=== PATIENT | female | born 1940 | race Caucasian/White ===

== ENCOUNTER 2017-01-29 12:11 | Emergency (ER) | payer MEDICARE, OTHER ==
[~2017-01-29] VITALS: Ht 157.5 cm; Wt 82.1 kg
[~2017-01-29 12:11] MED LIST: ALBU6.7H IH; CALC600T23 PO; ERGO2000 PO; ESOM40CA25 PO; FLUT1DIS3 IH; FOLI1TAB16 PO; GARL1CAP3 PO; LIDO700A4 TP; MELO15TA6 PO; MULT-496 PO; OMEG500C PO; SELE200T10 PO; TUMERIC; VALS80TA3 PO; [UNRECOGNIZED DRUG - CODE] MC
[2017-01-29 12:22] VITALS: BP 136/64
[2017-01-29] MEDS ORDERED: ONDANSETRON PF 4 MG/2 ML VIAL. IV ONE (12:45)
[2017-01-29 13:19] LABS: BASO # 0.1 x10^3/uL (0.0-0.2); BASO % 1 % (0-3); EOS # 0.2 x10^3/uL (0.0-0.7); EOS % 3 % (0-3); HEMATOCRIT 41.4 % (36.0-47.0); HEMOGLOBIN 13.9 g/dL (12.0-15.5); LYMPH # 2.5 x10^3/uL (1.0-4.8); LYMPH % 29 % (24-48); MEAN CORPUSCULAR HEMOGLOBIN 31 pg (25-35); MEAN CORPUSCULAR HGB CONC 34 g/dL (31-37); MEAN CORPUSCULAR VOLUME 91 fL (79-100); MONO # 0.9 x10^3/uL (0.0-1.1); MONO % 11 % (0-9); NEUT # 4.8 x10^3uL (1.8-7.7); NEUT % 56 % (31-73); PLATELET COUNT 221 x10^3/uL (140-400); RED BLOOD COUNT 4.55 x10^6/uL (3.50-5.40); RED CELL DISTRIBUTION WIDTH 14.1 % (11.5-14.5); WHITE BLOOD COUNT 8.5 x10^3/uL (4.0-11.0)
[2017-01-29 13:36] LABS: ALBUMIN 3.7 g/dL (3.4-5.0); CREATININE 1.3 mg/dL (0.6-1.0); GFR 39.9; TOTAL BILIRUBIN 0.4 mg/dL (0.2-1.0); TOTAL PROTEIN 7.4 g/dL (6.4-8.2)
[2017-01-29] MEDS ORDERED: IOHEXOL 300 MG/ML 75 ML VIAL. IV ONE (13:45)
--- NOTE | 2017-01-29 14:25 | RAD ---
CT abdomen/pelvis Indication: Left-sided abdominal pain Technique: CT abdomen and pelvis with 100 mL of Omnipaque 300 with multiplanar reformats Comparison: Previous CT abdomen/pelvis without contrast from 07/14/2016 Findings: Heart is normal in size. No pericardial or pleural effusion. Clear lung bases. 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 Otherwise, liver within normal limits. Spleen within normal limits. Status post cholecystectomy. Multiple small low attenuating lesions seen in the pancreas , nonspecific may represent side branch IPMN. Small area of focal fat infiltration is seen in the uncinate process. No suspicious bony lesion. Lower lumbar spine degenerative disc disease. No intrahepatic or extrahepatic biliary duct dilation. Left adrenal gland show stable nodularity. Right adrenal gland within normal limits. Partial nephrectomy changes seen in the left kidney. No suspicious solid renal lesions. No hydronephrosis or perinephric fluid collection. Postsurgical changes seen in the gastrosplenic recess. No retroperitoneal or pelvic adenopathy. No bowel obstruction. Sigmoid and descending colon diverticulosis. Redemonstrated is a left flank hernia likely from prior nephrectomy. Appendix is visualized and is within normal limits. Uterus is present. Bladder is within normal limits. No solid adnexal lesion. No free pelvic fluid. Scattered atherosclerotic disease of aorta noted. Focal dilation of the infrarenal aorta measuring 2.2 cm. Impression: 1. Stable partial left nephrectomy changes without evidence of focal lesion. 2. Left flank hernia likely from prior nephrectomy. 3. Scattered low attenuating lesions within the pancreas, nonspecific may represent side branch IPMN. Attention on follow-up. 4. Mild focal dilation of the infrarenal aorta measuring 2.2 cm. 5. Sigmoid and descending colon diverticulosis without diverticulitis. PQRS Compliance Statement: One or more of the following individualized dose reduction techniques were utilized for this examination: 1. Automated exposure control 2. Adjustment of the mA and/or kV according to patient size 3. Use of iterative reconstruction technique
[2017-01-29 15:18] LABS: BACTERIA,URINE 0 /HPF (0-FEW); BILIRUBIN,URINE NEG (NEG); CLARITY,URINE CLEAR; COLOR,URINE STRAW; GLUCOSE,URINE NEG (NEG); NITRITE,URINE NEG (NEG); RBC,URINE 0 /HPF (0-2); SQUAMOUS EPITHELIAL CELL,UR OCC /LPF; UROBILINOGEN,URINE 0.2 mg/dL (0.2 mg/dL)
--- NOTE | 2017-01-29 16:16 | PHYS DOC ---
Past History Past Medical History: Cancer, Hypertension, Other Past Surgical History: Cancer Surgery, Other Alcohol Use: Occasionally Drug Use: None Adult General Chief Complaint Chief Complaint: ABDOMINAL PAIN HPI HPI 76-year-old female with a prior history of kidney cancer treated surgically with a chronic hernia in her abdomen now presents to the emergency department because of a feeling of fullness where a mass and fullness has been for 6 months by the patient's description. No active vomiting or diarrhea. No fevers chills sweats or shaking chills. Pain is not worse with movement. This is been previously evaluated and deemed to be a nonsurgical and nonemergent process. Review of Systems Review of Systems Constitutional: Denies fever or chills [] Eyes: Denies change in visual acuity, redness, or eye pain [] HENT: Denies nasal congestion or sore throat [] Respiratory: Denies cough or shortness of breath [] Cardiovascular: No additional information not addressed in HPI [] GI: Denies abdominal pain, nausea, vomiting, bloody stools or diarrhea [] : Denies dysuria or hematuria [] Musculoskeletal: Denies back pain or joint pain [] Integument: Denies rash or skin lesions [] Neurologic: Denies headache, focal weakness or sensory changes [] Endocrine: Denies polyuria or polydipsia [] Current Medications Current Medications Current Medications Medications (Trade) Dose Ordered Sig/Kaylyn Start Time Stop Time Status Last Admin Dose Admin Iohexol (Omnipaque 300 Mg/ml) 75 ml 1X ONCE 01/29/17 13:45 01/29/17 13:46 DC 01/29/17 13:53 75 ML Ondansetron HCl (Zofran) 4 mg 1X ONCE 01/29/17 12:45 01/29/17 12:46 DC 01/29/17 13:14 4 MG Allergies Allergies Allergies Coded Allergies Type Severity Reaction Last Updated Verified No Known Drug Allergies 07/14/14 No Physical Exam Physical Exam Well appearing patient no acute distress mild fullness left abdomen no tenderness or guarding. Normal bowel sounds no megaly appreciated. No skin changes. Vital signs unremarkable Constitutional: Well developed, well nourished, no acute distress, non-toxic appearance. [] HENT: Normocephalic, atraumatic, bilateral external ears normal, oropharynx moist, no oral exudates, nose normal. [] Eyes: PERRLA, EOMI, conjunctiva normal, no discharge. [] Neck: Normal range of motion, no tenderness, supple, no stridor. [] Cardiovascular:Heart rate regular rhythm, no murmur [] Lungs & Thorax: Bilateral breath sounds clear to auscultation [] Abdomen: Bowel sounds normal, soft, no tenderness, no masses, no pulsatile masses. [] Skin: Warm, dry, no erythema, no rash. [] Back: No tenderness, no CVA tenderness. [] Extremities: No tenderness, no cyanosis, no clubbing, ROM intact, no edema. [] Neurologic: Alert and oriented X 3, normal motor function, normal sensory function, no focal deficits noted. [] Psychologic: Affect normal, judgement normal, mood normal. [] Current Patient Data Vital Signs Vital Signs Date Time Temp Pulse Resp B/P (MAP) Pulse Ox O2 Delivery O2 Flow Rate FiO2 01/29/17 12:22 98.1 70 16 97 Room Air Lab Results Laboratory Tests Test 01/29/17 13:03 01/29/17 14:40 White Blood Count 8.5 x10^3/uL (4.0-11.0) Red Blood Count 4.55 x10^6/uL (3.50-5.40) Hemoglobin 13.9 g/dL (12.0-15.5) Hematocrit 41.4 % (36.0-47.0) Mean Corpuscular Volume 91 fL (79-100) Mean Corpuscular Hemoglobin 31 pg (25-35) Mean Corpuscular Hemoglobin Concent 34 g/dL (31-37) Red Cell Distribution Width 14.1 % (11.5-14.5) Platelet Count 221 x10^3/uL (140-400) Neutrophils (%) (Auto) 56 % (31-73) Lymphocytes (%) (Auto) 29 % (24-48) Monocytes (%) (Auto) 11 % (0-9) H Eosinophils (%) (Auto) 3 % (0-3) Basophils (%) (Auto) 1 % (0-3) Neutrophils # (Auto) 4.8 x10^3uL (1.8-7.7) Lymphocytes # (Auto) 2.5 x10^3/uL (1.0-4.8) Monocytes # (Auto) 0.9 x10^3/uL (0.0-1.1) Eosinophils # (Auto) 0.2 x10^3/uL (0.0-0.7) Basophils # (Auto) 0.1 x10^3/uL (0.0-0.2) Sodium Level 137 mmol/L (136-145) Potassium Level 4.0 mmol/L (3.5-5.1) Chloride Level 103 mmol/L (98-107) Carbon Dioxide Level 24 mmol/L (21-32) Anion Gap 10 (6-14) Blood Urea Nitrogen 13 mg/dL (7-20) Creatinine 1.3 mg/dL (0.6-1.0) H Estimated GFR (Cockcroft-Gault) 39.9 BUN/Creatinine Ratio 10 (6-20) Glucose Level 129 mg/dL (70-99) H Calcium Level 9.0 mg/dL (8.5-10.1) Total Bilirubin 0.4 mg/dL (0.2-1.0) Aspartate Amino Transferase (AST) 15 U/L (15-37) Alanine Aminotransferase (ALT) 22 U/L (14-59) Alkaline Phosphatase 71 U/L (46-116) Total Protein 7.4 g/dL (6.4-8.2) Albumin 3.7 g/dL (3.4-5.0) Albumin/Globulin Ratio 1.0 (1.0-1.7) Lipase 74 U/L (73-393) Urine Collection Type Unknown Urine Color Straw Urine Clarity Clear Urine pH 5.5 Urine Specific Stanley <=1.005 Urine Protein Neg (NEG-TRACE) Urine Glucose (UA) Neg mg/dL (NEG) Urine Ketones (Stick) Neg mg/dL (NEG) Urine Blood Neg (NEG) Urine Nitrite Neg (NEG) Urine Bilirubin Neg (NEG) Urine Urobilinogen Dipstick 0.2 mg/dL (0.2 mg/dL) Urine Leukocyte Esterase Trace (NEG) Urine RBC 0 /HPF (0-2) Urine WBC 1-4 /HPF (0-4) Urine Squamous Epithelial Cells Occ /LPF Urine Bacteria 0 /HPF (0-FEW) EKG EKG [] Radiology/Procedures Radiology/Procedures [] Course & Med Decision Making Course & Med Decision Making Pertinent Labs and Imaging studies reviewed. (See chart for details) Well appearing patient chronic abdominal hernia patient wanted to have checked out. Labs and CT unremarkable without suggestion of acute process. Discuss incidental findings with the primary care doctor. She is weren't critical importance of this especially given findings of pancreatic mass. No further workup or treatment indicated at this time. Patient and family agree with outpatient follow-up and strict return precautions given [] Dragon Disclaimer Dragon Disclaimer This chart was dictated in whole or in part using Voice Recognition software in a busy, high-work load, and often noisy Emergency Department environment. It may contain unintended and wholly unrecognized errors or omissions. Departure Departure: Impression: Primary Impression: Abdominal pain Additional Impressions: Hernia of abdominal cavity Pancreatic mass Diverticulosis Disposition: HOME, SELF-CARE Condition: IMPROVED Referrals: OSIRIS DUARTE DO (PCP) Patient Instructions: Abdominal Pain (Nonspecific), Hernia Additional Instructions: Full workup today has showed no causes for your chronic abdominal pain which require immediate or emergency treatment. The only laboratory abnormality was a mildly elevated creatinine at 1.3. This is called mild renal insufficiency and just means that your kidney function was borderline abnormal today. You been given a copy of your CAT scan to discuss with your primary care doctor and arrange further workup and treatment as needed. Your CAT scan showed multiple abnormal findings including evidence of your previous partial nephrectomy, a left flank hernia as a result of the nephrectomy surgical site,. Other incidental findings include some abnormal findings in her pancreas which may be a mass and definitely require follow-up for further workup and definitive diagnosis specifically to rule out pancreatic cancer. U also have an incidental finding of diverticulosis. This is a condition of having small patches on her large bowel. It is a common condition that's not threatening however if one of these patches gets infected that is called and episode of diverticulitis. He did not have any evidence of diverticulitis today. Also follow-up with your doctor regarding your mildly enlarged aorta below the kidneys. The measurement was 2.2 cm and this is only mildly abnormal and requires no further workup or intervention today. It is important for you to be aware of it and follow-up with your doctor to discuss these results and the need for possible PE imaging in the future to rule out a progressively enlarging aorta which could progress to an abdominal aortic aneurysm. Follow-up with your doctor tomorrow and return immediately for new severe or worsening symptoms. Problem Qualifiers GUERA DESHPANDE MD Jan 29, 2017 16:15
== END 2017-01-29 16:28 | disposition home or self-care (01) ==
LOC: ER 12:11
DX: K45.8 Other specified abdominal hernia without obstruction or gangrene (principal); K86.9 Disease of pancreas, unspecified; K57.30 Diverticulosis of large intestine without perforation or abscess without bleeding; I10 Essential (primary) hypertension; G89.29 Other chronic pain
CPT/HCPCS: 36415; 74177; 80053; 81001; 83690; 85025; 96374; 99285; J2405; Q9967

== ENCOUNTER 2018-05-16 10:10 | Emergency (ER) | payer MEDICARE, OTHER ==
[~2018-05-16] VITALS: Ht 157.5 cm; Wt 85.7 kg
[2018-05-16] MEDS ORDERED: ONDANSETRON PF 4 MG/2 ML VIAL. IV ONE (10:30)
[2018-05-16] MEDS ORDERED: IOHEXOL 300 MG/ML 75 ML VIAL. IV ONE (10:45)
--- NOTE | 2018-05-16 11:12 | ED.ADGEN ---
Past History Past Medical History: Cancer, Hypertension, Other Past Surgical History: Cancer Surgery, Other Alcohol Use: Occasionally Drug Use: None Adult General Chief Complaint Chief Complaint Left-sided abdominal pain HPI HPI Patient is a 77-year-old female presents with intermittent left lower quadrant abdominal pain for the past 10 days. Pain is described as a heaviness and is worse with palpation and movement. Patient reports chronic abdominal pain to this region following nephrectomy in 2016. Denies constipation diarrhea. No fever chills or sweats. No flank pain, hematuria or urinary frequency urgency. No other acute symptoms or complaints. [] Review of Systems Review of Systems Review symptoms as per history of present illness. All other review symptoms All other systems were reviewed and found to be within normal limits, except as documented in this note. Current Medications Current Medications Current Medications Medications (Trade) Dose Ordered Sig/Kaylyn Start Time Stop Time Status Last Admin Dose Admin Fentanyl Citrate (Fentanyl 2ml Vial) 75 mcg 1X ONCE 05/16/18 10:30 05/16/18 10:34 DC 05/16/18 10:56 75 MCG Iohexol (Omnipaque 300 Mg/ml) 75 ml 1X ONCE 05/16/18 10:45 05/16/18 10:48 DC 05/16/18 12:10 75 ML Ondansetron HCl (Zofran) 4 mg 1X ONCE 05/16/18 10:30 05/16/18 10:34 DC 05/16/18 10:55 4 MG Allergies Allergies Allergies Coded Allergies Type Severity Reaction Last Updated Verified No Known Drug Allergies 07/14/14 No Physical Exam Physical Exam Constitutional: Well developed, well nourished, no acute distress, non-toxic appearance. [] HENT: Normocephalic, atraumatic, bilateral external ears normal, oropharynx moist, no oral exudates, nose normal. [] Eyes: PERRLA, EOMI, conjunctiva normal, no discharge. [] Neck: Normal range of motion, no tenderness, supple, no stridor. [] Cardiovascular:Heart rate regular rhythm, no murmur [] Lungs & Thorax: Bilateral breath sounds clear to auscultation [] Abdomen: Bowel sounds normal, soft, LLQ pain, tenderness. No rebound rigidity or guarding. Obesity compromising evaluation.. [] Skin: Warm, dry, no erythema, no rash. [] Back: No tenderness, no CVA tenderness. [] Extremities: No tenderness, no cyanosis, no clubbing, ROM intact, no edema. [] Neurologic: Alert and oriented X 3, normal motor function, normal sensory function, no focal deficits noted. [] Psychologic: Affect normal, judgement normal, mood normal. [] Current Patient Data Vital Signs Vital Signs Date Time Temp Pulse Resp B/P (MAP) Pulse Ox O2 Delivery O2 Flow Rate FiO2 05/16/18 11:49 75 16 139/69 (92) 95 Room Air 05/16/18 11:43 98.0 Lab Results Laboratory Tests Test 05/16/18 10:48 05/16/18 11:22 05/16/18 11:28 White Blood Count 8.4 x10^3/uL (4.0-11.0) Red Blood Count 4.50 x10^6/uL (3.50-5.40) Hemoglobin 14.0 g/dL (12.0-15.5) Hematocrit 41.5 % (36.0-47.0) Mean Corpuscular Volume 92 fL (79-100) Mean Corpuscular Hemoglobin 31 pg (25-35) Mean Corpuscular Hemoglobin Concent 34 g/dL (31-37) Red Cell Distribution Width 13.8 % (11.5-14.5) Platelet Count 253 x10^3/uL (140-400) Neutrophils (%) (Auto) 59 % (31-73) Lymphocytes (%) (Auto) 28 % (24-48) Monocytes (%) (Auto) 10 % (0-9) H Eosinophils (%) (Auto) 3 % (0-3) Basophils (%) (Auto) 1 % (0-3) Neutrophils # (Auto) 4.9 x10^3uL (1.8-7.7) Lymphocytes # (Auto) 2.3 x10^3/uL (1.0-4.8) Monocytes # (Auto) 0.8 x10^3/uL (0.0-1.1) Eosinophils # (Auto) 0.2 x10^3/uL (0.0-0.7) Basophils # (Auto) 0.1 x10^3/uL (0.0-0.2) Urine Collection Type Unknown Urine Color Yellow Urine Clarity Hazy Urine pH 6.5 Urine Specific Duarte 1.020 Urine Protein Neg (NEG-TRACE) Urine Glucose (UA) Neg mg/dL (NEG) Urine Ketones (Stick) Neg mg/dL (NEG) Urine Blood Neg (NEG) Urine Nitrite Neg (NEG) Urine Bilirubin Neg (NEG) Urine Urobilinogen Dipstick 0.2 mg/dL (0.2 mg/dL) Urine Leukocyte Esterase Trace (NEG) Urine RBC Rare /HPF (0-2) Urine WBC Occ /HPF (0-4) Urine Squamous Epithelial Cells Few /LPF Urine Bacteria Few /HPF (0-FEW) Urine Mucus Slight /LPF Sodium Level 142 mmol/L (136-145) Potassium Level 3.5 mmol/L (3.5-5.1) Chloride Level 105 mmol/L (98-107) Carbon Dioxide Level 26 mmol/L (21-32) Anion Gap 11 (6-14) Blood Urea Nitrogen 16 mg/dL (7-20) Creatinine 1.0 mg/dL (0.6-1.0) Estimated GFR (Cockcroft-Gault) 53.9 BUN/Creatinine Ratio 16 (6-20) Glucose Level 91 mg/dL (70-99) Lactic Acid Level 1.6 mmol/L (0.4-2.0) Calcium Level 8.7 mg/dL (8.5-10.1) Total Bilirubin 0.3 mg/dL (0.2-1.0) Aspartate Amino Transferase (AST) 17 U/L (15-37) Alanine Aminotransferase (ALT) 29 U/L (14-59) Alkaline Phosphatase 72 U/L (46-116) Total Protein 7.2 g/dL (6.4-8.2) Albumin 3.5 g/dL (3.4-5.0) Albumin/Globulin Ratio 0.9 (1.0-1.7) L Lipase 85 U/L (73-393) EKG EKG [] Radiology/Procedures Radiology/Procedures [CT Abdomen pelvis: No acute intra-abdominal process per radiology report.] Course & Med Decision Making Course & Med Decision Making Pertinent Labs and Imaging studies reviewed. (See chart for details) [Nondescript lower quadrant/periumbilical abdominal pain is. Lab work, CT abdomen pelvis reviewed. New acute identifiable causes of patient's symptoms. Recommend supportive care with Tylenol and tramadol with close PCP follow-up for further management. Return precautions reviewed. Patient verbalizes understanding agreement discharge instructions prior to departure.] Final Impression Final Impression [1. Abdominal pain] Rebecca Disclaimer Rebecca Disclaimer This electronic medical record was generated, in whole or in part, using a voice recognition dictation system. RAUDEL CARRION DO May 16, 2018 11:12
[2018-05-16 11:13] LABS: BASO # 0.1 x10^3/uL (0.0-0.2); BASO % 1 % (0-3); EOS # 0.2 x10^3/uL (0.0-0.7); EOS % 3 % (0-3); HEMATOCRIT 41.5 % (36.0-47.0); LYMPH # 2.3 x10^3/uL (1.0-4.8); LYMPH % 28 % (24-48); MEAN CORPUSCULAR HEMOGLOBIN 31 pg (25-35); MEAN CORPUSCULAR HGB CONC 34 g/dL (31-37); MEAN CORPUSCULAR VOLUME 92 fL (79-100); MONO # 0.8 x10^3/uL (0.0-1.1); MONO % 10 % (0-9); NEUT # 4.9 x10^3uL (1.8-7.7); NEUT % 59 % (31-73); PLATELET COUNT 253 x10^3/uL (140-400); RED CELL DISTRIBUTION WIDTH 13.8 % (11.5-14.5); WHITE BLOOD COUNT 8.4 x10^3/uL (4.0-11.0)
--- NOTE | 2018-05-16 11:14 | EKG ---
[address] [address] Test Date: 2018-05-16 Test Time: 11:11:17 Pat Name: ANEL OCONNOR Department: Room: Gender: F Reel Hooker: : 1940 Requested By: RAUDEL CARRION Order Number: [id number] Reading MD: Measurements Intervals [place] Rate: 68 P: TN: QRS: 34 QRSD: 82 T: 49 QT: 410 QTc: 441 Interpretive Statements IRREGULAR RHYTHM, NO P-WAVE FOUND QRS(T) CONTOUR ABNORMALITY CONSIDER ANTEROSEPTAL MYOCARDIAL DAMAGE POSSIBLY ABNORMAL ECG RI6.01 Unconfirmed report No previous ECG available for comparison
[2018-05-16 11:49] VITALS: BP 139/69
[2018-05-16 11:54] LABS: BILIRUBIN,URINE NEG (NEG); CLARITY,URINE HAZY; COLOR,URINE YELLOW; GLUCOSE,URINE NEG (NEG)
[2018-05-16 11:55] LABS: BACTERIA,URINE FEW /HPF (0-FEW); NITRITE,URINE NEG (NEG); RBC,URINE RARE /HPF (0-2); SQUAMOUS EPITHELIAL CELL,UR FEW /LPF; UROBILINOGEN,URINE 0.2 mg/dL (0.2 mg/dL); WBC,URINE OCC /HPF (0-4)
[2018-05-16 11:58] LABS: ALBUMIN 3.5 g/dL (3.4-5.0); ALBUMIN/GLOBULIN RATIO 0.9 (1.0-1.7); CALCIUM 8.7 mg/dL (8.5-10.1); GFR 53.9; POTASSIUM 3.5 mmol/L (3.5-5.1); TOTAL BILIRUBIN 0.3 mg/dL (0.2-1.0); TOTAL PROTEIN 7.2 g/dL (6.4-8.2)
--- NOTE | 2018-05-16 12:36 | RAD ---
Examination: CT of the abdomen pelvis with IV contrast HISTORY: History of left lower quadrant abdominal pain, heaviness COMPARISON: 01/29/2017 TECHNIQUE: Axial CT images of the abdomen pelvis were performed with IV contrast. Coronal and sagittal reformats are performed Exposure: One or more of the following individualized dose reduction techniques were utilized for this examination: 1. Automated exposure control 2. Adjustment of the mA and/or kV according to patient size 3. Use of iterative reconstruction technique FINDINGS: Minimal right lung base atelectasis or infiltrate. No evidence of free air identified in the abdomen. The visualized liver demonstrates mild decreased attenuation likely mild hepatic steatosis. The spleen, adrenals grossly appears unremarkable. The gallbladder is mildly distended. Small hiatal hernia. The stomach is mildly distended. The visualized pancreas grossly appears unremarkable. The small bowel is nondilated. The appendix is normal. The bilateral kidneys enhance symmetrically. Surgical changes identified about the left kidney similar to prior exam. Moderate aortic atherosclerosis. The urinary bladder is mildly distended. Feces and gas noted in the colon. Multiple colonic diverticulosis identified in the sigmoid colon. Moderate aortic atherosclerosis. Minimal focal ectasia infrarenal abdominal aorta measuring 2.7 cm. Moderate degenerative changes lumbar spine. IMPRESSION: 1. No acute abdominal findings. 2. Surgical changes identified about the left kidney similar to prior exam. 3. Multiple colonic diverticulosis and sigmoid colon. 4. Hepatic steatosis. Electronically signed by: Edmond Vinson MD (05/16/2018 12:32 PM) [id number]
[2018-05-16] MEDS ORDERED: TRAM50TA PO (12:48)
== END 2018-05-16 13:02 | disposition home or self-care (01) ==
LOC: ER 10:10
DX: R10.32 Left lower quadrant pain (principal); G89.29 Other chronic pain; I10 Essential (primary) hypertension; Z90.5 Acquired absence of kidney
CPT/HCPCS: 36415; 74177; 80053; 81001; 83605; 83690; 85025; 87086; 93005; 96374; 96375; 99284; J2405; J3010; Q9967

== ENCOUNTER 2018-11-05 05:31 | Emergency (ER) | payer MEDICARE, OTHER ==
[~2018-11-05] VITALS: Ht 157.5 cm; Wt 86.2 kg
[~2018-11-05 05:31] MED LIST changes: +ALBU2.5V8 IH; -ALBU6.7H IH; +TRAM50TA PO
[2018-11-05 06:13] VITALS: BP 162/60
[2018-11-05] MEDS ORDERED: MORPHINE SULFATE 4 MG/ML DISP.SYRIN. IV/SQ PRN (06:15)
[2018-11-05] MEDS ORDERED: ONDANSETRON PF 4 MG/2 ML VIAL. IV ONE (06:15)
[2018-11-05] MEDS ORDERED: IV NORMAL SALINE 500ML 500 ML IV ONE (06:15)
[2018-11-05] MEDS ORDERED: KETOROLAC 30 MG/ML VIAL. IV ONE (06:15)
[2018-11-05 06:22] LABS: BASO # 0.1 x10^3/uL (0.0-0.2); BASO % 1 % (0-3); EOS # 0.2 x10^3/uL (0.0-0.7); EOS % 3 % (0-3); HEMATOCRIT 42.9 % (36.0-47.0); HEMOGLOBIN 14.4 g/dL (12.0-15.5); LYMPH # 2.5 x10^3/uL (1.0-4.8); LYMPH % 37 % (24-48); MEAN CORPUSCULAR HEMOGLOBIN 30 pg (25-35); MEAN CORPUSCULAR HGB CONC 34 g/dL (31-37); MEAN CORPUSCULAR VOLUME 91 fL (79-100); MONO # 0.8 x10^3/uL (0.0-1.1); MONO % 12 % (0-9); NEUT # 3.1 x10^3uL (1.8-7.7); NEUT % 47 % (31-73); PLATELET COUNT 202 x10^3/uL (140-400); RED BLOOD COUNT 4.73 x10^6/uL (3.50-5.40); RED CELL DISTRIBUTION WIDTH 13.4 % (11.5-14.5); WHITE BLOOD COUNT 6.7 x10^3/uL (4.0-11.0)
[2018-11-05] MEDS ORDERED: ORPHENADRINE CITRATE 60 MG/2 ML VIAL. ONE (06:25)
--- NOTE | 2018-11-05 06:26 | PHYS DOC ---
Past History Past Medical History: Cancer (left renal), High Cholesterol, Hypertension, Other Past Surgical History: Cancer Surgery, Other Additional Past Surgical Histo: hiatal hernia surgery. Left kidney tumor resection Smoking: Non-smoker Alcohol Use: Occasionally Drug Use: None Adult General Chief Complaint Chief Complaint: LOWER BACK PAIN OR INJURY HPI HPI Patient is a 77-year-old female presents complaining of left-sided flank pain. This started 2 days ago and has been getting worse over time. Increased pain with movement. She has a history of a previous left sided kidney tumor removal. She also notes some dysuria. No fever. No nausea or vomiting. No relief with home medicines. She does have a previous history of similar discomfort. She is no recent chemotherapy or radiation and never received it for the tumor. She was told that it was a slow growing tumor and the surgery "got it all." She denies any numbness or tingling in her legs or feet. Denies any loss of bowel or bladder control.[] Review of Systems Review of Systems Constitutional: Denies fever or chills [] Eyes: Denies change in visual acuity, redness, or eye pain [] HENT: Denies nasal congestion or sore throat [] Respiratory: Denies cough or shortness of breath [] Cardiovascular: No chest pain or palpitations[] GI: Denies abdominal pain, nausea, vomiting, bloody stools or diarrhea [] : Denies dysuria or hematuria [] Musculoskeletal: Denies joint pain, see history of present illness [] Integument: Denies rash or skin lesions [] Neurologic: Denies headache, focal weakness or sensory changes [] Endocrine: Denies polyuria or polydipsia [] All other systems were reviewed and found to be within normal limits, except as documented in this note. Current Medications Current Medications Current Medications Medications (Trade) Dose Ordered Sig/Kaylyn Start Time Stop Time Status Last Admin Dose Admin Ketorolac Tromethamine (Toradol 30mg Vial) 30 mg 1X ONCE 11/05/18 06:15 11/05/18 06:16 UNV 11/05/18 06:20 30 MG Morphine Sulfate (Morphine 4mg Syringe) 4 mg PRN Q15MIN PRN 11/05/18 06:15 11/06/18 06:14 UNV 11/05/18 06:19 4 MG Ondansetron HCl (Zofran) 4 mg 1X ONCE 6/1/19 06:15 11/05/18 06:16 UNV 11/05/18 06:19 4 MG Orphenadrine Citrate (Norflex) 60 mg 1X ONCE 11/05/18 06:30 11/05/18 06:31 UNV Sodium Chloride 500 ml @ 0 mls/hr 1X ONCE 11/05/18 06:15 11/05/18 06:16 UNV 11/05/18 06:19 500 MLS/HR Allergies Allergies Allergies Coded Allergies Type Severity Reaction Last Updated Verified No Known Drug Allergies 07/14/14 No Physical Exam Physical Exam Constitutional: Well developed, well nourished, mild discomfort, non-toxic appearance. [] HENT: Normocephalic, atraumatic, bilateral external ears normal, oropharynx moist, no oral exudates, nose normal. [] Eyes: PERRLA, EOMI, conjunctiva normal, no discharge. [] Neck: Normal range of motion, no tenderness, supple, no stridor. [] Cardiovascular:Heart rate regular rhythm, no murmur [] Lungs & Thorax: Bilateral breath sounds clear to auscultation [] Abdomen: Bowel sounds normal, soft, no tenderness, no masses, no pulsatile masses. [] Skin: Warm, dry, no erythema, no rash. [] Back: No tenderness, tenderness over the costovertebral angle, no erythema, no skin changes, palpation of this re-creates/exacerbates her pain.. [] Extremities: No tenderness, no cyanosis, no clubbing, ROM intact, no edema. [] Neurologic: Alert and oriented X 3, normal motor function, normal sensory function, no focal deficits noted. [] Psychologic: Affect normal, judgement normal, mood normal. [] Current Patient Data Vital Signs Vital Signs Date Time Temp Pulse Resp B/P (MAP) Pulse Ox O2 Delivery O2 Flow Rate FiO2 11/05/18 05:47 97.6 64 20 95 Room Air EKG EKG [] Radiology/Procedures Radiology/Procedures PROCEDURE: CT ABD PELV W/ IV CONTRST ONLY Examination: CT of the abdomen pelvis with IV contrast HISTORY: History of left flank pain. COMPARISON: 05/16/2018 TECHNIQUE: Axial CT images of the abdomen pelvis were performed with IV contrast. Coronal and sagittal reformats are performed Exposure: One or more of the following individualized dose reduction techniques were utilized for this examination: 1. Automated exposure control 2. Adjustment of the mA and/or kV according to patient size 3. Use of iterative reconstruction technique FINDINGS: Minimal left lung base atelectasis. No evidence of free air identified in the abdomen. The mild decreased attenuation noted in the liver likely hepatic steatosis. The visualized spleen, adrenals grossly appears unremarkable. The gallbladder is mildly distended. Small hiatal hernia is identified. The visualized pancreas grossly appears unremarkable. Small bowel is nondilated. Multiple colonic diverticulosis identified. Appendix is normal. Prior surgical changes with parenchymal scarring changes identified in the mid left kidney. No evidence of intrarenal collecting system calculi or hydronephrosis identified. The urinary bladder is mildly distended. Moderate aortic atherosclerosis. Mild focal ectasia of infrarenal abdominal aorta. Moderate degenerative changes identified in the lumbar spine. IMPRESSION: 1. No acute intra-abdominal findings. 2. Surgical changes identified in the left kidney. 3. Hepatic steatosis.[] Course & Med Decision Making Course & Med Decision Making Pertinent Labs and Imaging studies reviewed. (See chart for details) ED course: Patient arrived, was placed in bed, and tolerated exam well. She had good relief of pain with the medications administered. Discussed the findings and plan with the patient who voiced understanding. Along with her . All questions were answered. She was discharged in improved condition. Medical decision making: There is no evidence of an obstruction, perforation, pyelonephritis, diverticulitis, bowel obstruction or perforation, nor other significant intra-abdominal pathology. Does not appear to be an acute coronary syndrome. No evidence of pancreatitis. No evidence of significant electrolyte abnormality. No evidence of metastatic disease[] Dragon Disclaimer Dragon Disclaimer This electronic medical record was generated, in whole or in part, using a voice recognition dictation system. Departure Departure: Impression: Primary Impression: Acute left flank pain Disposition: 01 HOME, SELF-CARE Condition: IMPROVED Referrals: KATIE CYR MD (PCP) Follow-up in 2 days Patient Instructions: Flank Pain Additional Instructions: Follow-up with your regular doctor in 2 days. Return to the ER if worsening pain, fever of more than 101, unable to tolerate food or liquids, or any other concerns. Scripts Orphenadrine Citrate (ORPHENADRINE CITRATE) 100 Mg Tablet.er 100 MG PO BID for BACK PAIN, #20 TAB.SR Prov: MICHA KUMARI DO 11/05/18 Hydrocodone Bit/Acetaminophen (NORCO 5-325 TABLET) 1 Each Tablet 1-2 TAB PO Q4-6HRS for severe pain, #20 TAB Prov: MICHA KUMARI DO 11/05/18 Meloxicam (MELOXICAM) 7.5 Mg Tablet 7.5 MG PO DAILY for PAIN, #20 TAB Prov: MICHA KUMARI DO 11/05/18 MICHA KUMARI DO Nov 05, 2018 06:26
[2018-11-05] MEDS ORDERED: ORPHENADRINE CITRATE 60 MG/2 ML VIAL. IV ONE (06:30)
[2018-11-05 06:34] LABS: ALBUMIN 3.7 g/dL (3.4-5.0); GFR 53.9; POTASSIUM 4.2 mmol/L (3.5-5.1); TOTAL BILIRUBIN 0.4 mg/dL (0.2-1.0); TOTAL PROTEIN 7.4 g/dL (6.4-8.2)
[2018-11-05] MEDS ORDERED: CONTRAST GIVEN MC PRN (06:45)
[2018-11-05] MEDS ORDERED: IOHEXOL 300 MG/ML 75 ML VIAL. IV ONE (06:45)
[2018-11-05 07:38] LABS: BILIRUBIN,URINE NEG (NEG); CLARITY,URINE CLEAR; COLOR,URINE YELLOW; GLUCOSE,URINE NEG (NEG); NITRITE,URINE NEG (NEG); UROBILINOGEN,URINE 0.2 mg/dL (0.2 mg/dL)
[2018-11-05 07:39] LABS: BACTERIA,URINE 0 /HPF (0-FEW); RBC,URINE OCC /HPF (0-2); WBC,URINE OCC /HPF (0-4)
[2018-11-05 07:40] LABS: HYALINE CASTS, URINE OCC /HPF; SQUAMOUS EPITHELIAL CELL,UR FEW /LPF
--- NOTE | 2018-11-05 07:46 | RAD ---
Examination: CT of the abdomen pelvis with IV contrast HISTORY: History of left flank pain. COMPARISON: 05/16/2018 TECHNIQUE: Axial CT images of the abdomen pelvis were performed with IV contrast. Coronal and sagittal reformats are performed Exposure: One or more of the following individualized dose reduction techniques were utilized for this examination: 1. Automated exposure control 2. Adjustment of the mA and/or kV according to patient size 3. Use of iterative reconstruction technique FINDINGS: Minimal left lung base atelectasis. No evidence of free air identified in the abdomen. The mild decreased attenuation noted in the liver likely hepatic steatosis. The visualized spleen, adrenals grossly appears unremarkable. The gallbladder is mildly distended. Small hiatal hernia is identified. The visualized pancreas grossly appears unremarkable. Small bowel is nondilated. Multiple colonic diverticulosis identified. Appendix is normal. Prior surgical changes with parenchymal scarring changes identified in the mid left kidney. No evidence of intrarenal collecting system calculi or hydronephrosis identified. The urinary bladder is mildly distended. Moderate aortic atherosclerosis. Mild focal ectasia of infrarenal abdominal aorta. Moderate degenerative changes identified in the lumbar spine. IMPRESSION: 1. No acute intra-abdominal findings. 2. Surgical changes identified in the left kidney. 3. Hepatic steatosis. Electronically signed by: Edmond Vinson MD (11/05/2018 7:44 AM) [facility]
[2018-11-05] MEDS ORDERED: HYDR-3165 PO (08:18)
[2018-11-05] MEDS ORDERED: MELO7.5T29 PO (08:18)
[2018-11-05] MEDS ORDERED: ORPH-16 PO (08:18)
== END 2018-11-05 08:35 | disposition home or self-care (01) ==
LOC: ER 05:31
DX: R10.9 Unspecified abdominal pain (principal); R30.0 Dysuria; E78.00 Pure hypercholesterolemia, unspecified; I10 Essential (primary) hypertension
CPT/HCPCS: 36415; 74177; 80053; 81001; 83690; 85025; 85610; 85730; 96374; 96375; 99285; J1885; J2270; J2360; J2405; J7040

== ENCOUNTER → 2019-07-06 | Outpatient (CLI) | payer MEDICARE, OTHER ==
[~2019-07-06] MED LIST changes: +HYDR-3165 PO; +MELO7.5T29 PO; +ORPH-16 PO
[2019-07-06 08:59] LABS: ALBUMIN 3.7 g/dL (3.4-5.0); CALCIUM 8.3 mg/dL (8.5-10.1); GFR 53.8; TOTAL BILIRUBIN 0.4 mg/dL (0.2-1.0); TOTAL PROTEIN 7.4 g/dL (6.4-8.2)
== END | disposition home or self-care (01) ==
LOC: LAB 07:21
PROVIDERS: ATTEND Nurse Practitioner
DX: E78.5 Hyperlipidemia, unspecified (principal); R25.2 Cramp and spasm; Z79.899 Other long term (current) drug therapy
CPT/HCPCS: 36415; 80053; 80061; 82306; 83735

== ENCOUNTER → 2020-04-17 | Outpatient (CLI) | payer MEDICARE, OTHER ==
--- NOTE | 2020-04-17 17:38 | RAD ---
DATE: 04/17/2020 1:45 PM EXAM: DIGITAL DIAGNOSTIC RT HISTORY: 79-year-old woman presents for right diagnostic mammographic imaging following complaints of tightness in the right axilla especially with arm elevation. COMPARISON: Bilateral mammogram 08/21/2019. Right full field craniocaudal and mediolateral oblique mammographic images were obtained using digital technique. This study was interpreted with the benefit of Computerized Aided Detection (CAD). FINDINGS: Breast Density: SCATTERED The breast parenchyma shows scattered fibroglandular densities. Breast parenchyma level B No suspicious masses, microcalcifications or architectural distortion is present to suggest malignancy. The visualized axilla is unremarkable. IMPRESSION: No mammographic evidence of malignancy. BI-RADS CATEGORY: 1 NEGATIVE RECOMMENDED FOLLOW-UP: 12M 12 MONTH FOLLOW-UP Annual screening mammography is recommended, unless clinically indicated sooner based on symptoms or change in physical exam. Recommend clinical management of complaints of right axillary tightness. PQRS compliance statement: Patient information was entered into a reminder system with a target due date for the next mammogram. Mammography is a sensitive method for finding small breast cancers, but it does not detect them all and is not a substitute for careful clinical examination. A negative mammogram does not negate a clinically suspicious finding and should not result in delay in biopsying a clinically suspicious abnormality. "Our facility is accredited by the [employer] Mammography Program."
== END ==
LOC: MAMMO 13:16
PROVIDERS: ATTEND Family Medicine
DX: R92.2 Inconclusive mammogram (principal)
CPT/HCPCS: 77065